=== PATIENT | female | born 1975 | race Caucasian/White ===

== ENCOUNTER 2024-09-27 10:45 | Emergency (ER) | payer OTHER, SELFPAY ==
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
[2024-09-27 11:50] VITALS: BP 135/77; PULSE 69; RESP 16; TEMP 36.8; O2SAT 99; BMI 30.4
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
--- NOTE | 2024-09-27 16:35 | PC.NURSE ---
PT WAS ASSESSED BY MD IN A CHAIR ASSIGNMENT, RESULTS REVIEWED OF IMAGING. SHE WAS AMBULATORY WITH A STEADY GAIT IN AND OUT OF ED SHE WAS AGREEABLE TO DISCHARGE
[2024-09-27 16:38] VITALS: BP 121/77; PULSE 71; RESP 16; TEMP 36.8; O2SAT 99
== END 2024-09-27 16:39 | disposition home or self-care (01) ==
PROVIDERS: Emergency Provider Emergency Medicine Emergency Medical Services; PCP Internal Medicine
DX: S40.022A Contusion of left upper arm, initial encounter (principal); S59.912A Unspecified injury of left forearm, initial encounter; M79.602 Pain in left arm; M54.6 Pain in thoracic spine; V43.52XA Car driver injured in collision with other type car in traffic accident, initial encounter; Y93.89 Activity, other specified; Y92.488 Other paved roadways as the place of occurrence of the external cause; Y99.8 Other external cause status
CPT/HCPCS: 72072; 73030; 73060; 73090; 73130; 99282; 99283; 99284

== ENCOUNTER → 2024-09-27 12:02 | Outpatient (BNV) | payer OTHER, SELFPAY | PROVIDERS: PCP Internal Medicine; Visit Provider Radiology Diagnostic Radiology | DX: M54.9 Dorsalgia, unspecified (principal); M25.512 Pain in left shoulder; M79.642 Pain in left hand; M79.602 Pain in left arm | CPT/HCPCS: 72072; 73030; 73060; 73090; 73130 ==